=== PATIENT | male | born 1965 | race African-American/Black ===

== ENCOUNTER 2024-04-09 06:48 | Emergency (ER) | payer MEDICAID ==
[~2024-04-09] VITALS: Ht 185.4 cm; Wt 74.2 kg
[2024-04-09 07:15] VITALS: BP 136/96; PULSE 91; RESP 16; TEMP 98.1; O2SAT 98
[2024-04-09] MEDS ORDERED: IBUP-1456 PO (07:21)
[2024-04-09] MEDS ORDERED: TRIA0.02 TOP (07:21)
[2024-04-09] MEDS ORDERED: ACYC1TAB3 PO (07:21)
[2024-04-09] MEDS: IBUPROFEN 800 MG TAB PO ONE (07:21)
== END 2024-04-09 07:26 | disposition home or self-care (01) ==
LOC: ER 06:48
DX: B02.9 Zoster without complications (principal); Z79.899 Other long term (current) drug therapy

== ENCOUNTER 2024-04-18 11:27 | Emergency (ER) | payer MEDICAID ==
[~2024-04-18] VITALS: Ht 185.4 cm; Wt 66.0 kg
[~2024-04-18 11:27] MED LIST: ACYC1TAB3 PO; IBUP-1456 PO; TRIA0.02 TOP
[2024-04-18 12:03] VITALS: BP 151/101; PULSE 88; RESP 18; TEMP 98.1; O2SAT 95
[2024-04-18] MEDS ORDERED: TRIA0.02 TOP (12:23)
[2024-04-18] MEDS ORDERED: ACYC1TAB3 PO (12:23)
[2024-04-18] MEDS ORDERED: IBUP-1456 PO (12:23)
--- NOTE | 2024-04-18 12:23 | ED.PDOC ---
History of Present Illness(SKN HPI Comments Patient recently diagnosed with herpes zoster presents for medication refill. Reports medications are gradually improving. But continues to endorse itching. Intermittent tingling. No other complaints or concerns. Chief Complaint: Rash Time Seen by MD: 11:51 Primary Care Provider: IBRAHIMA History of Present Illness: Nurses Notes, Medications, Allergies Allergies: Coded Allergies: NO KNOWN ALLERGIES (Unverified , 04/09/24) Home Meds Active Scripts Triamcinolone Acetonide (Triamcinolone Acetonide) 0.025 % Cre, 1 APPLIC TOP BID, #30 GRAMS Prov:NEGAR VALENTE TECHNICAL OPERATIONS VICE PRESIDENT 04/18/24 Acyclovir (Acyclovir) 800 Mg Tab, 800 MG PO 5XD, #35 TAB Prov:NEGRA VALENTE TECHNICAL OPERATIONS VICE PRESIDENT 04/18/24 Ibuprofen (Ibuprofen) 800 Mg Tab, 1 TAB PO TID, #30 TAB Prov:NEGRA VALENTE TECHNICAL OPERATIONS VICE PRESIDENT 04/18/24 Information Source: Patient Mode of Arrival: Ambulatory Past Medical History PAST MEDICAL HISTORY: Denies Surgical History: Denies all surgeries Family History Family History: Reviewed,noncontributory to illness Social History Smoker: Non-Smoker Alcohol: Denies ETOH Use Drugs: Denies Drug Use Lives In: Home All Other Systems: Reviewed and Negative (Per HPI) Physical Exam General Appearance: No Apparent Distress, Normal HEENT: Normal ENT Inspection, Pharynx Normal, TMs Normal Neck: Full Range of Motion, Non-Tender, Normal, Normal Inspection Respiratory: Chest Non-Tender, Lungs Clear, No Accessory Muscle Use, No Respiratory Distress, Normal Breath Sounds Cardiovascular: No Edema, No JVD, No Murmur, No Gallop, Normal Peripheral Pulses, Regular Rate/Rhythm Breast Exam: Deferred Gastrointestinal: No Organomegaly, Non Tender, No Pulsatile Mass, Normal Bowel Sounds, Soft Genitalia: Deferred Pelvic: Deferred Rectal: Deferred Extremities: No calf tenderness, Normal capillary refill, Normal inspection, Normal range of motion, Non-tender, No pedal edema Musculoskeletal : Apperance: Normal Neurologic: Alert, battery tester field II-XII nml as Tested, No Motor Deficits, Normal Affect, Normal Mood, No Sensory Deficits Cerebellar Function: Normal Reflexes: Normal Skin: Dry, Normal Color, Rash (rash healing, crusting over. ), Warm Lymphatic: No Adenopathy Was a procedure done? Was a procedure done?: No Differential Diagnosis (INTG) Differential Diagnosis: Other X-Ray, Labs, Meds, VS Vital Signs Date Time Temp Pulse Resp B/P (MAP) Pulse Ox O2 Delivery O2 Flow Rate FiO2 04/18/24 12:03 88 18 95 Room Air 04/18/24 12:03 98.1 88 18 151/101 (118) 95 98.1 04/18/24 11:36 98.1 88 18 151/101 (118) 95 X-Ray, Labs, Meds, VS Comment On reevaluation, patient had symptomatic improvement. Patient is stable for discharge at this time. External notes reviewed. Test results and diagnostic imaging interpreted. All diagnostic findings, discharge care, education and instructions provided Follow-up with PCP in 2 to 3 days Patient verbalized understanding and agreed to treatment plan Vital signs stable, afebrile, no acute distress noted Patient ambulatory with strong steady gait Advised to return precautions for any new or worsening symptoms, return to ER immediately for re-evaluation Patient is aware that the purpose of this visit was for an acute medical emergency requiring emergent stabilization. Chronic conditions, including malignancies have not been ruled out. Patient is instructed to follow up with PCP as directed and discharge instructions for continued care and workup. If unable to arrange follow-up, patient is to return to the emergency department for reassessment. Patient (parent or legal guardian if applicable) was given verbal and written discharge instructions and acknowledges understanding. Time of 1ST Reevaluation: 12:00 Reevaluation 1ST: Improved Patient Education/Counseling: Diagnosis, Treatment Family Education/Counseling: Diagnosis, Treatment Departure 1 Departure Time of Disposition: 12:23 Impression: Primary Impression: Herpes zoster Qualified Codes: B02.9 - Zoster without complications Disposition: HOME / SELF CARE / HOMELESS Condition: Stable e-Prescriptions Triamcinolone Acetonide (Triamcinolone Acetonide) 0.025 % Cre 1 APPLIC TOP BID, #30 GRAMS Prov: NEGRA VALENTE TECHNICAL OPERATIONS VICE PRESIDENT 04/18/24 Acyclovir (Acyclovir) 800 Mg Tab 800 MG PO 5XD, #35 TAB Prov: NEGRA VALENTE TECHNICAL OPERATIONS VICE PRESIDENT 04/18/24 Ibuprofen (Ibuprofen) 800 Mg Tab 1 TAB PO TID, #30 TAB Prov: NEGRA VALENTE TECHNICAL OPERATIONS VICE PRESIDENT 04/18/24 Critical Care Note Critical Care Time?: No Stability Stability form required: No Heart Score Heart Score: Heart Score Response (Comments) Value History N/A 0 EKG N/A 0 Age N/A 0 Risk Factors N/A 0 Troponin N/A 0 Total 0 NEGRA VALENTE NP Apr 18, 2024 12:23
== END 2024-04-18 12:25 | disposition home or self-care (01) ==
LOC: ER 11:27
DX: B02.9 Zoster without complications (principal); Z76.0 Encounter for issue of repeat prescription; Z79.1 Long term (current) use of non-steroidal anti-inflammatories (NSAID); Z79.899 Other long term (current) drug therapy

== ENCOUNTER 2024-04-27 11:06 | Emergency (ER) | payer MEDICAID ==
[~2024-04-27] VITALS: Ht 185.4 cm; Wt 75.0 kg
[2024-04-27] MEDS ORDERED: CALA1SUS2 EX (11:55)
--- NOTE | 2024-04-27 11:56 | ED.PDOC ---
History of Present Illness(SKN HPI Comments Patient recently diagnosed with herpes zoster presents for wound check. Reports rash is improving significantly. Continues to endorse itching. Intermittent tingling. No other complaints or concerns. Chief Complaint: Rash Time Seen by MD: 11:46 Primary Care Provider: IBRAHIMA History of Present Illness: Nurses Notes, Medications, Allergies Allergies: Coded Allergies: NO KNOWN ALLERGIES (Unverified , 04/09/24) Home Meds Active Scripts Calamine-Zinc Oxide (Calamine 8-8 %) 1 Krissy Krissy, 1 APPLIC EX QID for 30 Days, #1 BOTTLE 0 Refills Prov:NEGRA VALENTE MIS SPECIALIST 04/27/24 Triamcinolone Acetonide (Triamcinolone Acetonide) 0.025 % Cre, 1 APPLIC TOP BID, #30 GRAMS Prov:NEGRA VALENTE NP 04/18/24 Acyclovir (Acyclovir) 800 Mg Tab, 800 MG PO 5XD, #35 TAB Prov:NEGRA VALENTE NP 04/18/24 Ibuprofen (Ibuprofen) 800 Mg Tab, 1 TAB PO TID, #30 TAB Prov:NEGRA VALENTE NP 04/18/24 Mode of Arrival: Ambulatory Past Medical History PAST MEDICAL HISTORY: Denies Surgical History: Denies all surgeries Family History Family History: Reviewed,noncontributory to illness Social History Smoker: Non-Smoker Alcohol: Denies ETOH Use Drugs: Denies Drug Use Lives In: Home All Other Systems: Reviewed and Negative (Per HPI) Physical Exam General Appearance: No Apparent Distress, Normal HEENT: Normal ENT Inspection, Pharynx Normal, TMs Normal Neck: Full Range of Motion, Non-Tender, Normal, Normal Inspection Respiratory: Chest Non-Tender, Lungs Clear, No Accessory Muscle Use, No Respiratory Distress, Normal Breath Sounds Cardiovascular: No Edema, No JVD, No Murmur, No Gallop, Normal Peripheral Pulses, Regular Rate/Rhythm Breast Exam: Deferred Gastrointestinal: No Organomegaly, Non Tender, No Pulsatile Mass, Normal Bowel Sounds, Soft Genitalia: Deferred Pelvic: Deferred Rectal: Deferred Extremities: No calf tenderness, Normal capillary refill, Normal inspection, Normal range of motion, Non-tender, No pedal edema Musculoskeletal : Apperance: Normal Neurologic: Alert, drying equipment operator II-XII nml as Tested, No Motor Deficits, Normal Affect, Normal Mood, No Sensory Deficits Cerebellar Function: Normal Reflexes: Normal Skin: Dry, Normal Color, Warm Lymphatic: No Adenopathy Was a procedure done? Was a procedure done?: No Differential Diagnosis (INTG) Differential Diagnosis: Other X-Ray, Labs, Meds, VS Vital Signs Date Time Temp Pulse Resp B/P (MAP) Pulse Ox O2 Delivery O2 Flow Rate FiO2 04/27/24 12:00 92 04/27/24 12:00 92 16 116/111 (113) 97 04/27/24 11:15 98.1 92 16 166/111 (129) 97 X-Ray, Labs, Meds, VS Comment Rash improved significantly. Stable for discharge. Recommended calamine as needed Time of 1ST Reevaluation: 11:30 Reevaluation 1ST: Improved Patient Education/Counseling: Diagnosis, Treatment Family Education/Counseling: Diagnosis, Treatment Departure 1 Departure Time of Disposition: 11:55 Impression: Primary Impression: Visit for wound check Disposition: 01 HOME / SELF CARE / HOMELESS Condition: Stable e-Prescriptions Calamine-Zinc Oxide (Calamine 8-8 %) 1 Krissy Krissy 1 APPLIC EX QID for 30 Days, #1 BOTTLE 0 Refills Prov: NEGRA VALENTE NP 04/27/24 Discharged With: Self Critical Care Note Critical Care Time?: No Stability Stability form required: No Heart Score Heart Score: Heart Score Response (Comments) Value History N/A 0 EKG N/A 0 Age N/A 0 Risk Factors N/A 0 Troponin N/A 0 Total 0 NEGRA VALENTE NP Apr 27, 2024 11:56
[2024-04-27 12:00] VITALS: BP 116/111; PULSE 92; RESP 16; O2SAT 97
== END 2024-04-27 12:05 | disposition home or self-care (01) ==
LOC: ER 11:06
DX: T14.8XXA Other injury of unspecified body region, initial encounter (principal); Z79.899 Other long term (current) drug therapy; X58.XXXA Exposure to other specified factors, initial encounter; Y93.89 Activity, other specified; Y92.89 Other specified places as the place of occurrence of the external cause; Y99.8 Other external cause status